=== PATIENT | female | born 1995 ===

== ENCOUNTER 2024-09-24 15:00 | Inpatient (IN) | payer OTHER ==
[~2024-09-24] VITALS: Ht 157.5 cm; Wt 114.3 kg
[2024-10-08 12:35] VITALS: BP 118/76
[2024-10-08] MEDS ORDERED: RINGERS SOLUTION,LACTATED 1,000 ML IV SCH (13:00)
[2024-10-08] MEDS ORDERED: PRENATA CHEWAB1 EACH PO (13:00)
[2024-10-08] MEDS ORDERED: LIDOCAINE HCL 1% 10ML VIAL ONE (13:01)
[2024-10-08] MEDS ORDERED: CHLORHEXIDINE GLUCONATE 120 ML BOTTLE TOP ONE (13:01)
[2024-10-08] MEDS ORDERED: ERYTHROMYCIN BASE OPHT 1GM EACH TUBE OP ONE ×2 (13:01→19:30)
[2024-10-08] MEDS ORDERED: OXYTOCIN 20 UNITS/1000ML RL PIGGYBAG IV ONE (13:01)
[2024-10-08] MEDS ORDERED: VITAMIN D-40010 MCG PO (13:03)
[2024-10-08 14:04] LABS: BASO % 0.1 % (0.1-1.2); HEMOGLOBIN 12.1 g/dL (11.2-15.7); LYMPH # 0.92 (1.18-3.74); MEAN CORPUSCULAR HEMOGLOBIN 29.9 pg (25.6-32.2); MONO # 0.89 (0.24-0.82); MONO % 4.9 % (4.7-12.5); NEUT # 16.44 (1.56-6.13); NEUT % 89.6 % (34.0-71.1); PLATELET COUNT 266 K/uL (163-369); RED BLOOD COUNT 4.05 M/uL (3.93-5.22); RED CELL DISTRIBUTION WIDTH 13.3 % (11.6-14.4)
[2024-10-08 14:40] LABS: INR < 0.93; PARTIAL THROMBOPLASTIN TIME 29.1 SECONDS (22.0-34.0); PROTHROMBIN TIME 9.9 SECONDS (9.0-11.5)
[2024-10-08 14:57] LABS: ALBUMIN 2.5 gm/dL (3.4-5.0); BILIRUBIN TOTAL 0.63 mg/dL (0.3-1.2); CALCIUM 9.1 mg/dL (8.5-10.1); CREATININE SERUM 0.56 mg/dL (0.55-1.02); GFR 126.26; GLOBULINA 3.6 G/DL (2.4-3.5); POTASSIUM 4.21 mEq/L (3.5-5.1); TOTAL PROTEIN 6.1 gm/dL (6.4-8.2)
[2024-10-08 15:48] VITALS: BP 146/83
[2024-10-08] MEDS ORDERED: IBUprofen 400 MG TABLET PO PRN (19:15)
[2024-10-08] MEDS ORDERED: CHLORHEXIDINE GLUCONATE 120 ML BOTTLE TOP SCH (19:15)
[2024-10-08] MEDS ORDERED: OXYTOCIN 1,000 ML IV SCH (19:15)
[2024-10-08 20:11] VITALS: BP 128/83
[2024-10-09] VITALS: BP 119/79
[2024-10-09 07:00] LABS: BASO % 0.2 % (0.1-1.2); EOS # 0.03 (0.04-0.54); EOS % 0.1 % (0.7-7.0); HEMATOCRIT 32.6 % (34.1-44.9); HEMOGLOBIN 10.9 g/dL (11.2-15.7); LYMPH # 2.86 (1.18-3.74); LYMPH % 12.7 % (19.3-53.1); MEAN CORPUSCULAR HEMOGLOBIN 29.9 pg (25.6-32.2); MONO # 1.49 (0.24-0.82); MONO % 6.6 % (4.7-12.5); NEUT # 17.95 (1.56-6.13); PLATELET COUNT 269 K/uL (163-369); RED BLOOD COUNT 3.65 M/uL (3.93-5.22); RED CELL DISTRIBUTION WIDTH 13.5 % (11.6-14.4)
[2024-10-09 08:56] VITALS: BP 133/89
[2024-10-09 12:59] VITALS: BP 118/82
[2024-10-09 16:00] VITALS: BP 119/78
[2024-10-10 01:03] VITALS: BP 121/77
[2024-10-10 09:02] VITALS: BP 120/74
== END 2024-10-10 11:44 | disposition home or self-care (01) | DRG 807 ==
LOC: OB/GYN 10-02 15:00 → LDR 10-08 12:41 → OB/GYN 10-08 18:32 → LDR 10-08 18:35 → OB/GYN 10-08 18:38
PROVIDERS: Obstetrics & Gynecology; ADMIT Obstetrics & Gynecology Maternal & Fetal Medicine; ATTEND Obstetrics & Gynecology Maternal & Fetal Medicine
PROC: 10E0XZZ Delivery of Products of Conception, External Approach (ICD-10-PCS; principal; 2024-10-08)
PROC: 0HQ9XZZ Repair Perineum Skin, External Approach (ICD-10-PCS; 2024-10-08)
PROC: 4A1HXCZ Monitoring of Products of Conception, Cardiac Rate, External Approach (ICD-10-PCS; 2024-10-08)
DX: O70.0 First degree perineal laceration during delivery (principal); Z37.0 Single live birth; Z3A.40 40 weeks gestation of pregnancy

== ENCOUNTER 2024-09-25 12:29 | Outpatient (CLI) | payer OTHER | END 2024-09-25 12:36 | disposition home or self-care (01) | LOC: NST 12:29 | PROVIDERS: ATTEND Obstetrics & Gynecology Maternal & Fetal Medicine | DX: Z34.83 Encounter for supervision of other normal pregnancy, third trimester (principal) ==

== ENCOUNTER 2024-10-02 09:13 | Outpatient (CLI) | payer OTHER | END 2024-10-02 10:08 | disposition home or self-care (01) | LOC: NST 09:13 | PROVIDERS: ATTEND Obstetrics & Gynecology Maternal & Fetal Medicine | DX: Z34.83 Encounter for supervision of other normal pregnancy, third trimester (principal) ==

== ENCOUNTER 2024-10-07 14:04 | Outpatient (CLI) | payer OTHER ==
[2024-10-07 14:15] VITALS: BP 116/81
[2024-10-08] MEDS ORDERED: PRENATA CHEWAB1 EACH PO (13:00)
[2024-10-08] MEDS ORDERED: VITAMIN D-40010 MCG PO (13:03)
== END 2024-10-07 14:57 | disposition home or self-care (01) ==
LOC: NST 14:04
PROVIDERS: ATTEND Obstetrics & Gynecology
DX: Z34.83 Encounter for supervision of other normal pregnancy, third trimester (principal)